=== PATIENT | female | born 1960 ===

== ENCOUNTER 2018-01-27 11:00 | Inpatient (IN) | payer OTHER ==
[~2018-01-27] VITALS: Ht 170.2 cm; Wt 190.0 kg
[2018-02-06] MEDS ORDERED: OXYC1TAB9 PO (17:07)
== END 2018-02-06 17:40 | disposition home or self-care (01) | DRG 330 ==
LOC: SURG 02-03 07:00 → SURH 02-03 08:06 → O/R 02-03 08:06 → SURG 02-03 11:00 → SURH 02-03 16:28
PROVIDERS: Surgery; Urology
PROC: 0DJD8ZZ Inspection of Lower Intestinal Tract, Via Natural or Artificial Opening Endoscopic (ICD-10-PCS; 2018-02-03)
PROC: 0T788DZ Dilation of Bilateral Ureters with Intraluminal Device, Via Natural or Artificial Opening Endoscopic (ICD-10-PCS; 2018-02-03)
PROC: 0DTN4ZZ Resection of Sigmoid Colon, Percutaneous Endoscopic Approach (ICD-10-PCS; principal; 2018-02-03 07:00)
PROC: 0DTP4ZZ Resection of Rectum, Percutaneous Endoscopic Approach (ICD-10-PCS; 2018-02-03 07:00)
DX: K57.40 Diverticulitis of both small and large intestine with perforation and abscess without bleeding (principal); N82.3 Fistula of vagina to large intestine; N13.39 Other hydronephrosis; E11.9 Type 2 diabetes mellitus without complications; Z91.040 Latex allergy status